=== PATIENT | female | born 1965 | race Caucasian/White ===

== ENCOUNTER 2019-05-18 13:24 | Emergency (ER) | payer OTHER ==
[~2019-05-18] VITALS: Ht 165.1 cm; Wt 90.7 kg
[2019-05-18 13:24] VITALS: BP_SYST 138
--- NOTE | 2019-05-18 13:24 | NUR ---
Placed in room 1 . Placed on fabrication and assembly supervisor, blood pressure machine and pulse oximeter. To gown for exam. Side rails up. Report given to ALEXANDRA Adams.
--- NOTE | 2019-05-18 13:30 | NUR ---
Patient presents to ER C/O chest pain Patient A&Ox4, ambulatory to ER, afebrile, skin pink and warm with exception to right anterior chest to posterior flank red rash, pain 5/10, denies n/v/d, placed on pulse-ox monitor and monitoring and evaluation advisor upon arrival to ER bed 1. Patient states chest pain started this morning at 0400 self medicated with "nitro, baby aspirin, norco and anxiety pill" with relief. pain returned at 1230 today patient self medicated with "asthma inhaler, nitro and norco" with out relief, patient called 911 from home. Patient reports HX RA, STROKE, HEART ATTACK, ANXIETY, DEPRESSION
[2019-05-18] MEDS ORDERED: NACL 0.9% 1,000 ML IV ONE (13:31)
--- NOTE | 2019-05-18 13:35 | NUR ---
ER Dr. Valencia at bedside examining patient.
[2019-05-18] MEDS ORDERED: ACYCLOVIR IV 750 MG in D5W 100 ML IV ONE (13:45)
[2019-05-18] MEDS ORDERED: MORPHINE 2 MG/ML INJ. SYRINGE IVP ONE (13:45)
[2019-05-18 13:52] LABS: BASOPHILS % (AUTO) 1.1 % (0.0-2.0); EOSINOPHILS # (AUTO) 0.2 K/uL (0.0-0.4); EOSINOPHILS % (AUTO) 3.9 % (0.0-4.0); HEMATOCRIT 32.7 % (36-48); HEMOGLOBIN 10.5 g/dL (12.0-16.0); LYMPHOCYTES # (AUTO) 1.4 K/uL (1.0-5.5); MEAN CORPUSCULAR HEMOGLOBIN 27 pg (27-31); MEAN CORPUSCULAR HGB CONC 32 % (32-36); MEAN CORPUSCULAR VOLUME 85 fL (79.0-98.0); MONOCYTES # (AUTO) 0.8 K/uL (0.0-1.0); MONOCYTES % (AUTO) 18.6 % (1.7-9.3); NEUTROPHILS % (AUTO) 45.4 % (40.0-70.0); PLATELET COUNT (AUTO) 328 K/uL (130-430); RED BLOOD CELL COUNT(AUTO) 3.86 MIL/uL (4.2-6.2); RED CELL DISTRIBUTION WIDTH 21.2 % (9.0-15.0); WHITE BLOOD COUNT (AUTO) 4.4 K/uL (4.8-10.8)
[2019-05-18 14:01] LABS: ANION GAP 8 (5-15); CALCIUM 8.4 mg/dL (8.4-11.0); CHLORIDE 103 mmol/L (98-107); CREATININE 0.81 mg/dL (0.55-1.30); GLUCOSE 132 mg/dL (70-99); POTASSIUM 3.7 mmol/L (3.5-5.1); SODIUM SERUM 134 mmol/L (136-145); UREA NITROGEN, BLOOD 9 mg/dL (8-21)
[2019-05-18 14:02] LABS: GFR AFRICAN AMERICAN 96 mL/min (>90)
[2019-05-18] MEDS ORDERED: ACYCLOVIR SODIUM 50 MG/ML VIAL IV ONE (14:07)
[2019-05-18 14:10] LABS: ALANINE AMINOTRANSFERASE 15 U/L (12-78); ALBUMIN 3.3 g/dL (3.4-4.8); ASPARTATE AMINOTRANSFERASE 19 U/L (10-37); TOTAL BILIRUBIN 0.4 mg/dL (0.0-1.0)
--- NOTE | 2019-05-18 17:43 | NUR ---
Patient given written and verbal discharge instructions and verbalizes understanding. ER MD discussed with patient the results and treatment provided. Patient in stable condition. ID arm band removed. IV catheter removed intact and dressing applied, no active bleeding. Rx of Percocet & acyclovir given. Patient educated on pain management and to follow up with PMD. Pain Scale . Opportunity for questions provided and answered. Medication side effect fact sheet provided. supervisor winter called for dial-a-ride service
[2019-05-18 17:47] VITALS: BP_SYST 119
== END 2019-05-18 17:47 | disposition home or self-care (01) ==
LOC: SED 13:24
DX: B02.9 Zoster without complications (principal); R11.10 Vomiting, unspecified; R42 Dizziness and giddiness; F41.9 Anxiety disorder, unspecified; Z86.79 Personal history of other diseases of the circulatory system
CPT/HCPCS: 36415; 71045; 80053; 84484; 85025; 85610; 85730; 93005; 96361; 96374; 96375; 99285; J0133; J2270; J7030